=== PATIENT | female | born 1955 | race Caucasian/White ===

== ENCOUNTER → 2016-08-11 | Outpatient (CLI) | payer BC ==
[2016-01-14 15:11] VITALS: BP 108/68; PULSE 80
[~2016-08-11] MED LIST: ASPCH81X PO; ATOR-22 PO; BLACCAP2 PO; CALC950T5 PO; CITA10TA8 PO; FELO10TA2 PO; LISI40TA PO; MULT-225 PO; OMEP40CA PO
[2016-08-11 14:11] VITALS: BP 111/67; PULSE 78; TEMP 37; O2SAT 94
--- NOTE | 2016-08-11 15:24 | Radiation Oncology Follow-Up ---
Radiation Oncology Follow-Up Date of Visit Aug 11, 2016. 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 Last Edited By: Silvana Donnelly on Dec 28, 2015 14:28 History of Present Illness Ms. Corley is a 60-year-old female who is been followed with screening mammograms. On 09/09/2014 the patient was noted to have an angular 5.8 mm asymmetry in the superior posterior left breast clearly seen only on the MLO view. A unilateral left digital diagnostic mammogram and targeted left breast ultrasound was performed on 09/19/2014. The previously described 5 mm triangular asymmetry in the left superior breast was only partially effaced on the spot compression views. The asymmetry appeared similar to prior spot compression views in 2009 and 2011. Close follow-up with repeat exam in 6 months was recommended. On 04/02/2015 patient underwent a repeat unilateral left digital diagnostic mammogram and targeted left ultrasound. This showed a stable asymmetry in the left superior posterior breast compared to the prior exam in August. A vague 6 mm hypoechoic areas seen in the left breast at the 2 o' clock position and ultrasound which does not clearly correlate with the mammographic asymmetry. A bilateral breast MRI was suggested. On 06/09/2015 bilateral breast MRIs were performed. In the right breast there was minimal fibrocystic change. At the 10:30 posterior right breast a Bernice formed 0.4 by .3 x 8 0.3 cm mass was appreciated of uncertain significance. Second look ultrasound was recommended. No other suspicious enhancement noted. In the left breast an ill-defined 9.6 x 17 x 8.6 mm region of non-mass enhancement and architectural distortion at the 10 to 11:00 for posterior left breast was appreciated correlating with the area of asymmetry identified mammographically. There were at least 3 subcentimeter ring enhancing masses within the subareolar left breast which could represent papillomas with no corresponding cysts appreciated. On 08/20/2015 patient underwent a call back following breast MRI for second look ultrasound. An irregular 1.2 cm hypoechoic mass is seen in the left breast at the 2 o'clock position which is felt to correlate with the abnormal enhancement on breast MRI. This mass was highly suspicious and an ultrasound-guided core needle biopsy was recommended. No sonographic correlate is seen for the enhancing mass in the right breast upper-outer quadrant and probably representing normal intramammary lymph node. Recommended follow-up bilateral breast MRI in 6 months was suggested. No sonographic correlate to the enhancing focus seen within the subcutaneous tissue overlying the superior sternum and likely benign. A circumscribed 4 mm mass is noted in the subareolar left breast which corresponds with one of the rim-enhancing masses seen on breast MRI. This is benign and compatible with a complicated cyst. Patient then went on to have an ultrasound-guided left breast biopsy on 2015. This revealed a ductal carcinoma in situ, nuclear grade 2. Multiple foci totaling 0.9 linear centimeters was appreciated and multiple core fragments. Comedonecrosis was present. The architectural pattern was solid and cribriform. Estrogen receptors were focally positive (5%, strong). Progesterone receptors were negative. AJCC pathologic stage was pTis (DCIS) N0. Case: [id number]. Patient was seen by Dr. John Blair for discussion of surgical treatment options. He recommended proceeding with a partial mastectomy. The patient agreed and this procedure was performed on 09/14/2015. This confirmed the presence of DCIS, grade 3 (high-grade) with comedonecrosis measuring 1.5 cm. The margins were negative with a close margin (superior lateral of 0.1 cm for DCIS. Also noted however was a small microinvasive component measuring 0.8 mm consistent with an invasive ductal carcinoma nuclear grade 2 of 3. Estrogen receptors were negative, progesterone receptors were negative and HER-2/lilliana overexpression was positive (score 3+, 90% strong membranous staining). There was insufficient microinvasive disease to perform FISH analysis. The margins on the microinvasive lesion were clear with the closest 1.4 cm (superolateral). The staining of the DCIS was also negative for estrogen receptor and progesterone receptor and positive for HER-2/lilliana. The final AJCC pathologic staging was therefore a pT1mi pNx. Case: 08/07/[id number]. Patient went on to have sentinel lymph node biopsy on 10/09/2015. The sentinel node was benign with no evidence of metastatic carcinoma on routine staining or by immunohistochemistry to cytokeratin. Case: [id number]. Dr. Blair spoke with Dr. Esparza and offered the patient and oncology consult. The patient however declined which was felt to be reasonable given the very small lesion which would likely not benefit from consideration of systemic chemotherapy and would not be a candidate for antiestrogen therapy. We were asked to see her to discuss the role of adjuvant radiation. It is for this reason the patient is seen in referral. She underwent a CT simulation was found to be a candidate for hypo- fractionation. Radiation was completed 12/16/2015 she received 5130 cGy Interim History She is doing well over the past 6 months. She denies any changes to her breast. She is noted no masses or tenderness no change of the axilla. She's had no swelling of her arm. She is up-to-date on mammography. She had a mammogram and ultrasound 04/19/2016. This showed interval treatment changes in the left breast. The focal asymmetry in the upper outer posterior breast is most consistent with postsurgical scarring. A short interval follow-up left mammogram is recommended in 6 months to document stability. Stable probably benign approximate 5 mm left subareolar lesion by ultrasound, likely a complicated cyst. Recommend reassessment by ultrasound in 6 months. No evidence of right breast malignancy. There are very small enhancing structures in the breast identified by MRI that are not reproduced by mammogram. Likelihood for malignancy is considered very low based on morphology and signal characteristics. These results were discussed with Dr. Blair. Allergies Coded Allergies: Penicillins (Unverified Allergy, Mild, 06/05/09) Cat Dander (Verified Allergy, Unknown, ALLERGY IS TO "CAT GUT SUTURE", 16/09) Home Medications Scheduled Aspirin (Aspirin Chewable), 81 MG PO DAILY Atorvastatin (Lipitor), 1 TAB PO DAILY Black Cohosh (Cimicifuga Racem (Black Cohosh Extract), 1 CAP PO BID Calcium Citrate-Vitamin D (Calcium Citrate W/D), 1 TAB PO BID Citalopram Hydrobromide (Celexa), 1 TAB PO DAILY Felodipine (Plendil), 10 MG PO DAILY Lisinopril (Zestril), 40 MG PO DAILY Multiple Vitamin (Multi-Day Vitamins), 1 TAB PO DAILY Omeprazole (Prilosec), 40 MG PO BID Review of Systems Gastrointestinal: Symptoms: WNL Oral: Symptoms: No Problems Respiratory: Symptoms: WNL Urinary: Symptoms: WNL Skin: Symptoms: No Problems Other Skin Symptoms: Continues to use skin care to treatment site daily Breast: Right Upper Arm Measurement: 25.2 Right Mid Arm Measurement: 21.7 Right Wrist Measurement: 15.8 Left Upper Arm Measurement: 26.4 Left Mid Arm Measurement: 21.7 Left Wrist Measurement: 15.5 Arm Dominence: Right Physical Exam Vital Signs Date Time Temp Pulse Resp B/P Pulse Ox O2 Delivery O2 Flow Rate FiO2 08/11/16 14:11 37.0 78 16 111/67 94 Pain: Patient Pain Scale: 0 - 10 Initial Pain Intensity: 0.0 Fatigue: None General Appearance: no apparent distress Eyes: normal inspection, EOMI ENT: normal ENT inspection, hearing grossly normal Neck: no adenopathy, thyroid normal Respiratory/Chest: lungs clear, no respiratory distress, no accessory muscle use Breast: Breast examination reveals well-healed incisions of the left breast. There are no masses or tenderness and no axillary adenopathy. She has resolving hyperpigmentation. There is mild dryness of the skin. There are no skin retractions or nipple changes. Using the Dubois score cosmesis she has a good outcome. The right breast showed no masses or tenderness and no axillary adenopathy. Cardiovascular: regular rate, rhythm, no gallop, no murmur Extremities: no pedal edema Neurologic/Psychiatric: no motor/sensory deficits, alert, normal mood/affect Skin: warm/dry Additional Studies Mammography as reviewed above. Assessment & Plan Plan: Patient is scheduled for recheck mammogram in September. She has a follow-up appointment with Dr. Blair in November. Continue regular follow-up with her primary care physician. We asked her to return to our office in 1 year. She was instructed to use Aquaphor for skin dryness. She may call our office if she has any questions or concerns. Total Time In Follow-Up I spent 20 minutes speaking to the patient performing examination. I spent 15 minutes reviewing information completing this note. Copy To John Blair M.D.; Ronn Magallon D.O.
== END | disposition home or self-care (01) ==
LOC: C.ONC 13:46
PROVIDERS: ATTEND Physician Assistant Medical
DX: Z08 Encounter for follow-up examination after completed treatment for malignant neoplasm (principal); Z92.3 Personal history of irradiation; Z85.3 Personal history of malignant neoplasm of breast

== ENCOUNTER → 2017-08-10 | Outpatient (CLI) | payer OTHER ==
[~2017-08-10] MED LIST changes: +RANI150T3 PO
[2017-08-10 12:54] VITALS: BP 121/74; PULSE 70; TEMP 36.7; O2SAT 94
--- NOTE | 2017-08-10 14:00 | Radiation Oncology Follow-Up ---
Radiation Oncology Follow-Up Date of Visit Aug 10, 2017. 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 Last Edited By: Silvana Donnelly on Dec 28, 2015 14:28 History of Present Illness Ms. Corley is a 60-year-old female who is been followed with screening mammograms. On 09/09/2014 the patient was noted to have an angular 5.8 mm asymmetry in the superior posterior left breast clearly seen only on the MLO view. A unilateral left digital diagnostic mammogram and targeted left breast ultrasound was performed on 09/19/2014. The previously described 5 mm triangular asymmetry in the left superior breast was only partially effaced on the spot compression views. The asymmetry appeared similar to prior spot compression views in 2009 and 2011. Close follow-up with repeat exam in 6 months was recommended. On 04/02/2015 patient underwent a repeat unilateral left digital diagnostic mammogram and targeted left ultrasound. This showed a stable asymmetry in the left superior posterior breast compared to the prior exam in August. A vague 6 mm hypoechoic areas seen in the left breast at the 2 o' clock position and ultrasound which does not clearly correlate with the mammographic asymmetry. A bilateral breast MRI was suggested. On 06/09/2015 bilateral breast MRIs were performed. In the right breast there was minimal fibrocystic change. At the 10:30 posterior right breast a Bernice formed 0.4 by .3 x 8 0.3 cm mass was appreciated of uncertain significance. Second look ultrasound was recommended. No other suspicious enhancement noted. In the left breast an ill-defined 9.6 x 17 x 8.6 mm region of non-mass enhancement and architectural distortion at the 10 to 11:00 for posterior left breast was appreciated correlating with the area of asymmetry identified mammographically. There were at least 3 subcentimeter ring enhancing masses within the subareolar left breast which could represent papillomas with no corresponding cysts appreciated. On 08/20/2015 patient underwent a call back following breast MRI for second look ultrasound. An irregular 1.2 cm hypoechoic mass is seen in the left breast at the 2 o'clock position which is felt to correlate with the abnormal enhancement on breast MRI. This mass was highly suspicious and an ultrasound-guided core needle biopsy was recommended. No sonographic correlate is seen for the enhancing mass in the right breast upper-outer quadrant and probably representing normal intramammary lymph node. Recommended follow-up bilateral breast MRI in 6 months was suggested. No sonographic correlate to the enhancing focus seen within the subcutaneous tissue overlying the superior sternum and likely benign. A circumscribed 4 mm mass is noted in the subareolar left breast which corresponds with one of the rim-enhancing masses seen on breast MRI. This is benign and compatible with a complicated cyst. Patient then went on to have an ultrasound-guided left breast biopsy on 2015. This revealed a ductal carcinoma in situ, nuclear grade 2. Multiple foci totaling 0.9 linear centimeters was appreciated and multiple core fragments. Comedonecrosis was present. The architectural pattern was solid and cribriform. Estrogen receptors were focally positive (5%, strong). Progesterone receptors were negative. AJCC pathologic stage was pTis (DCIS) N0. Case: [id number]. Patient was seen by Dr. John Blair for discussion of surgical treatment options. He recommended proceeding with a partial mastectomy. The patient agreed and this procedure was performed on 09/14/2015. This confirmed the presence of DCIS, grade 3 (high-grade) with comedonecrosis measuring 1.5 cm. The margins were negative with a close margin (superior lateral of 0.1 cm for DCIS. Also noted however was a small microinvasive component measuring 0.8 mm consistent with an invasive ductal carcinoma nuclear grade 2 of 3. Estrogen receptors were negative, progesterone receptors were negative and HER-2/lilliana overexpression was positive (score 3+, 90% strong membranous staining). There was insufficient microinvasive disease to perform FISH analysis. The margins on the microinvasive lesion were clear with the closest 1.4 cm (superolateral). The staining of the DCIS was also negative for estrogen receptor and progesterone receptor and positive for HER-2/lilliana. The final AJCC pathologic staging was therefore a pT1mi pNx. Case: 08/[id number]/[id number]. Patient went on to have sentinel lymph node biopsy on 10/09/2015. The sentinel node was benign with no evidence of metastatic carcinoma on routine staining or by immunohistochemistry to cytokeratin. Case: [id number]. Dr. Blair spoke with Dr. Esparza and offered the patient and oncology consult. The patient however declined which was felt to be reasonable given the very small lesion which would likely not benefit from consideration of systemic chemotherapy and would not be a candidate for antiestrogen therapy. We were asked to see her to discuss the role of adjuvant radiation. It is for this reason the patient is seen in referral. She underwent a CT simulation was found to be a candidate for hypo- fractionation. Radiation was completed 12/16/2015 she received 5130 cGy Interim History She has been doing well over the past year. She denies any changes to her breast. She is noted no masses or tenderness no change of the axilla. She has had no swelling of her arm. She is up-to-date with mammography. She had a mammogram at [facility] April 06, 2017. There is no evidence of breast malignancy. A 12 month follow-up was recommended this will be a diagnostic mammogram this was given BI-RADS Category 2. She had been followed by who has now retired. She was seen last week by Dr. Jannette Valencia at the breast care center in [place]. Allergies Coded Allergies: Penicillins (Unverified Allergy, Mild, 06/05/09) Cat Dander (Verified Allergy, Unknown, ALLERGY IS TO "CAT GUT SUTURE", 16/09) Home Medications Scheduled Aspirin (Aspirin Chewable), 81 MG PO DAILY Atorvastatin (Lipitor), 1 TAB PO DAILY Black Cohosh (Cimicifuga Racem (Black Cohosh Extract), 1 CAP PO BID Calcium Citrate-Vitamin D (Calcium Citrate W/D), 1 TAB PO BID Citalopram Hydrobromide (Celexa), 1 TAB PO DAILY Felodipine (Plendil), 10 MG PO DAILY Lisinopril (Zestril), 40 MG PO DAILY Multiple Vitamin (Multi-Day Vitamins), 1 TAB PO DAILY Omeprazole (Prilosec), 40 MG PO DAILY Ranitidine Hcl (Zantac), 150 MG PO DAILYBD Review of Systems Gastrointestinal: Symptoms: WNL Oral: Symptoms: No Problems Respiratory: Symptoms: WNL Urinary: Symptoms: WNL Skin: Symptoms: No Problems Breast: Right Upper Arm Measurement: 25.5 Right Mid Arm Measurement: 21.8 Right Wrist Measurement: 15.8 Left Upper Arm Measurement: 25.5 Left Mid Arm Measurement: 21.5 Left Wrist Measurement: 15.2 Arm Dominence: Right Physical Exam Vital Signs Date Time Temp Pulse Resp B/P (MAP) Pulse Ox O2 Delivery O2 Flow Rate FiO2 08/10/17 12:54 36.7 70 16 121/74 94 Fatigue: None General Appearance: no apparent distress Eyes: normal inspection, EOMI ENT: normal ENT inspection, hearing grossly normal Neck: no adenopathy, thyroid normal Respiratory/Chest: lungs clear, no respiratory distress, no accessory muscle use Breast: Breast examination reveals well-healed incisions of the left breast. There are no masses or tenderness and no axillary adenopathy. She has no skin retractions or nipple changes. She does have some fibrous changes in the area of the breast incision. Using the Florissant score cosmesis she has a good outcome. There is some telangiectasia in the inframammary fold. Cardiovascular: regular rate, rhythm, no gallop, no murmur Extremities: no pedal edema Neurologic/Psychiatric: no motor/sensory deficits, alert, normal mood/affect Lymphatic: no adenopathy Pain Management Patient Reports Pain: No Initial Pain Intensity: 0.0 Pain Management Plan She denies pain therefore requires no pain management. Laboratory Laboratory Results: not applicable Pathology Pathology Results: not applicable Imaging Imaging Studies: were reviewed Imaging Comments Reviewed in the interim history. Assessment & Plan Plan: Continue with scheduled mammography. She will be having a mammogram in March. She is going to continue follow-up with the breast center in [place] as well as her primary care provider. We asked her to return to our office in 1 year. She may call if she has any questions or concerns in the interim. Total Time In Follow-Up I spent 20 minutes speaking to the patient in performing examination. I spent 15 minutes reviewing information and completing this note. Copy To Zahida Stanley DO; Newhouser, Areli M., D.O. Problem Qualifiers (1) Breast cancer of upper-outer quadrant of left female breast: Estrogen receptor status: negative Qualified Codes: C50.412 - Malignant neoplasm of upper-outer quadrant of left female breast; Z17.1 - Estrogen receptor negative status [ER-]
== END | disposition home or self-care (01) ==
LOC: C.ONC 12:45
PROVIDERS: ATTEND Physician Assistant Medical
DX: Z08 Encounter for follow-up examination after completed treatment for malignant neoplasm (principal); Z92.3 Personal history of irradiation; Z85.3 Personal history of malignant neoplasm of breast